=== PATIENT | female | born 1970 | race Two or more races ===

== ENCOUNTER 2017-07-02 07:33 | Emergency (ER) | payer MEDICAID ==
[~2017-07-02] VITALS: Ht 160 cm; Wt 85.7 kg
[2017-07-02] MEDS ORDERED: DIAZEPAM 5 MG TAB PO ONE (08:15)
[2017-07-02] MEDS ORDERED: KETOROLAC TROMETH 60MG/2ML VIAL IM ONE (08:15)
[2017-07-02] MEDS ORDERED: HYDROcodone-ACET 10/325MG TAB PO ONE (09:45)
[2017-07-02 11:14] VITALS: BP 129/69
== END 2017-07-02 11:41 | disposition home or self-care (01) ==
LOC: EDBD 07:33 → ER 07:33
DX: S39.012A Strain of muscle, fascia and tendon of lower back, initial encounter (principal); S16.1XXA Strain of muscle, fascia and tendon at neck level, initial encounter; S40.011A Contusion of right shoulder, initial encounter; S80.02XA Contusion of left knee, initial encounter; Z88.0 Allergy status to penicillin; V49.49XA Driver injured in collision with other motor vehicles in traffic accident, initial encounter; Y93.89 Activity, other specified; Y99.8 Other external cause status; Y92.89 Other specified places as the place of occurrence of the external cause
CPT/HCPCS: 72040; 72100; 72125; 73000; 73562; 96372; 99284; J1885

== ENCOUNTER 2023-05-19 06:04 | Emergency (ER) | payer MEDICAID ==
[~2023-05-19] VITALS: Ht 160 cm; Wt 69.0 kg
[2023-05-19] MEDS ORDERED: SODIUM CHLORIDE 0.9% 500 ML IVB ONE ×2 (06:45→07:00)
[2023-05-19] MEDS ORDERED: HYDROmorphone HCL 2 MG/ML VL/or syr IV ONE (07:00)
[2023-05-19] MEDS ORDERED: METOCLOPRAMIDE HCL 5MG/ml INJ 2ml VIAL IV ONE (07:00)
[2023-05-19] MEDS ORDERED: SODIUM CHLORIDE 0.9% 1,000 ML IV ONE (07:00)
[2023-05-19 07:10] LABS: Basophils # (auto) 0.1 10 ^3/uL (0-0.2); Hemoglobin 9.6 g/dL (12.2-16.2); Lymphocytes # (auto) 2.4 10 ^3/uL (0.4-5.4); Monocytes # (auto) 0.5 10 ^3/uL (0-1.3); Neutrophils % (auto) 51.6 % (37.0-80.0); Nucleated Red Blood Cells % 0.1 %
[2023-05-19 07:12] LABS: Urine Bacteria FEW /hpf (None Seen); Urine Blood Negative /uL (Negative); Urine Clarity Clear (Clear); Urine Protein, UAD Negative (Negative); Urine Specific Gravity 1.019 (1.001-1.035); Urine Urobilinogen Normal (Negative); Urine WBC 4 /hpf (0 - 5); Urine pH 5.5 (5.0-8.0)
[2023-05-19 07:13] LABS: Urine Color Straw (Yellow)
[2023-05-19 07:14] LABS: Basophils % (auto) 0.7 % (0.0-2.0); Eosinophils # (auto) 0.7 10 ^3/uL (0-0.8); Eosinophils % (auto) 9.2 % (0.0-7.0); Hematocrit 31.7 % (36.0-46.0); Lymphocytes % (auto) 32.1 % (10.0-50.0); Mean Corpuscular Hemoglobin 19.9 pg (28.0-32.0); Mean Corpuscular Hgb Conc. 30.3 g/dL (32.0-36.0); Mean Corpuscular Volume 65.7 fL (80.0-100.0); Monocytes % (auto) 6.4 % (0.0-12.0); Neutrophils # (auto) 3.8 10 ^3/uL (1.6-8.6); Red Blood Cells 4.82 10^6/uL (4.0-5.20); White Blood Cell 7.4 10^3/uL (4.4-10.8)
[2023-05-19 08:10] VITALS: TEMP 98.4
[2023-05-19 08:39] LABS: Albumin 3.3 g/dL (3.4-5.0); Calcium 8.8 mg/dL (8.5-10.1); Magnesium 2.5 mg/dL (1.6-2.6); Potassium 3.9 mmol/L (3.5-5.1)
[2023-05-19 08:42] LABS: BUN/Creatinine Ratio 26.5 (10.0-20.0); Bilirubin, Total 0.2 mg/dL (0.2-1.0); Total Protein 7.8 g/dL (6.4-8.2)
[2023-05-19] MEDS ORDERED: ACYCLOVIR SOD 50MG/ML 800 MG in SODIUM CHL 0.9% 250 ML IV ONE (10:30)
[2023-05-19] MEDS ORDERED: cefTRIAXone 1GM/50ML D5W 50 ML IV ONE (10:30)
[2023-05-19] MEDS ORDERED: DICL50TA2 PO (10:34)
[2023-05-19] MEDS ORDERED: NITR-87 PO (10:34)
[2023-05-19] MEDS ORDERED: ACYC400T16 PO (10:34)
[2023-05-19 11:04] VITALS: PULSE 67; RESP 20; O2SAT 96
[2023-05-19 12:00] VITALS: BP 95/50; PULSE 60; RESP 10; O2SAT 99
== END 2023-05-19 12:31 | disposition home or self-care (01) ==
LOC: ER 06:04
DX: N39.0 Urinary tract infection, site not specified (principal); B02.9 Zoster without complications; G89.4 Chronic pain syndrome; R07.89 Other chest pain; Z88.0 Allergy status to penicillin
CPT/HCPCS: 36415; 71045; 74177; 80053; 81001; 83690; 83735; 85025; 96361; 96365; 96366; 96368; 96375; 99285; J0133; J0696; J1170; J2765; J7030; J7040; J7050; Q9967